=== PATIENT | female | born 1955 | race Caucasian/White ===

== ENCOUNTER 2018-07-27 12:03 | Outpatient (CLI) | payer OTHER | END 2018-07-27 12:09 | disposition home or self-care (01) | LOC: MAMO-SONO 12:03 | DX: Z12.31 Encounter for screening mammogram for malignant neoplasm of breast (principal); N64.4 Mastodynia ==

== ENCOUNTER 2020-09-25 10:33 | Outpatient (CLI) | payer OTHER | END 2020-09-25 10:34 | disposition home or self-care (01) | LOC: MAMO-SONO 10:33 | PROVIDERS: ATTEND Surgery Surgery of the Hand | DX: Z12.31 Encounter for screening mammogram for malignant neoplasm of breast (principal); N64.4 Mastodynia ==

== ENCOUNTER → 2020-12-10 | Outpatient (CLI) | payer OTHER | END | disposition home or self-care (01) | LOC: PPH VACUNA 10:00 | PROVIDERS: ATTEND Emergency Medicine Pediatric Emergency Medicine | DX: Z23 Encounter for immunization (principal) ==

== ENCOUNTER 2022-02-25 08:00 | Outpatient (CLI) | payer OTHER | END 2022-02-25 08:30 | disposition home or self-care (01) | LOC: PPH VACUNA 08:00 | PROVIDERS: ATTEND Emergency Medicine Pediatric Emergency Medicine | DX: Z23 Encounter for immunization (principal) ==

== ENCOUNTER 2022-04-30 11:24 | Outpatient (CLI) | payer OTHER | END 2022-04-30 11:28 | disposition home or self-care (01) | LOC: MAMO-SONO 11:24 | DX: N64.4 Mastodynia (principal); R22.9 Localized swelling, mass and lump, unspecified; N60.11 Diffuse cystic mastopathy of right breast; N60.12 Diffuse cystic mastopathy of left breast ==

== ENCOUNTER → 2022-04-30 12:59 | Outpatient (CLI) | payer OTHER | END | disposition home or self-care (01) | LOC: NUCLEAR 11:30 | PROVIDERS: ATTEND Surgery Surgery of the Hand | DX: M81.0 Age-related osteoporosis without current pathological fracture (principal) ==

== ENCOUNTER 2022-05-21 14:28 | Outpatient (CLI) | payer OTHER | END 2022-05-21 14:40 | disposition home or self-care (01) | LOC: SONOGRAMA 14:28 | PROVIDERS: ATTEND Specialist | DX: R10.2 Pelvic and perineal pain (principal) ==

== ENCOUNTER 2022-10-26 15:56 | Outpatient (CLI) | payer OTHER | END 2022-10-26 15:58 | disposition home or self-care (01) | LOC: SONOGRAMA 15:56 | PROVIDERS: ATTEND Pathology Anatomic Pathology & Clinical Pathology | DX: C85.10 Unspecified B-cell lymphoma, unspecified site (principal) ==

== ENCOUNTER 2024-01-19 13:29 | Outpatient (CLI) | payer OTHER | END 2024-01-19 13:38 | disposition home or self-care (01) | LOC: MAMO-SONO 13:29 | DX: N63.0 Unspecified lump in unspecified breast (principal); N64.4 Mastodynia; N83.292 Other ovarian cyst, left side; Z12.31 Encounter for screening mammogram for malignant neoplasm of breast ==

== ENCOUNTER 2024-07-24 08:55 | Outpatient (CLI) | payer OTHER | END 2024-07-24 09:30 | disposition home or self-care (01) | LOC: MRI 08:55 | PROVIDERS: ATTEND Obstetrics & Gynecology Gynecology | DX: R19.09 Other intra-abdominal and pelvic swelling, mass and lump (principal) | CPT/HCPCS: 72197; 74183; Q9965 ==